=== PATIENT | male | born 1950 | race Caucasian/White ===

== ENCOUNTER → 2021-02-28 | Outpatient (CLI) | payer MEDICARE | LOC: KOH-I 15:02 | DX: S92.902A Unspecified fracture of left foot, initial encounter for closed fracture (principal); M79.89 Other specified soft tissue disorders; M19.072 Primary osteoarthritis, left ankle and foot | CPT/HCPCS: 73620 ==

== ENCOUNTER → 2021-03-28 | Outpatient (CLI) | payer MEDICARE | LOC: KOH-I 13:33 | DX: S92.322A Displaced fracture of second metatarsal bone, left foot, initial encounter for closed fracture (principal); S92.332A Displaced fracture of third metatarsal bone, left foot, initial encounter for closed fracture | CPT/HCPCS: 73630 ==

== ENCOUNTER → 2021-07-23 | Outpatient (CLI) | payer MEDICARE | LOC: EXRD 07-19 14:30 | DX: I65.23 Occlusion and stenosis of bilateral carotid arteries (principal) | CPT/HCPCS: 93880 ==

== ENCOUNTER → 2021-09-17 | Outpatient (CLI) | payer MEDICARE | LOC: HEART 5 09-11 09:30 | DX: R01.1 Cardiac murmur, unspecified (principal); I10 Essential (primary) hypertension | CPT/HCPCS: 93306 ==

== ENCOUNTER → 2021-10-09 | Day surgery (SDC) | payer MEDICARE ==
[~2021-10-09] MED LIST: ATORVASTATIN CA10 MG PO; HYDROCHLOROTHIA25 MG PO; LOSARTAN POTAS100 MG PO; MAGNESIUM100 MG PO; PROTONIX40 MG PO; TYLENOL325 MG PO; VITAMIN D3125 MC1 PO; ZINC PO; [UNRECOGNIZED DRUG - MIXTURE] PO
== END | disposition home or self-care (01) ==
LOC: OR 07:42
DX: D50.9 Iron deficiency anemia, unspecified (principal); K29.50 Unspecified chronic gastritis without bleeding; D12.3 Benign neoplasm of transverse colon; K57.30 Diverticulosis of large intestine without perforation or abscess without bleeding; K64.0 First degree hemorrhoids; K64.1 Second degree hemorrhoids; K64.4 Residual hemorrhoidal skin tags; K25.9 Gastric ulcer, unspecified as acute or chronic, without hemorrhage or perforation; K63.89 Other specified diseases of intestine; I10 Essential (primary) hypertension; E66.8 Other obesity; M19.90 Unspecified osteoarthritis, unspecified site; E78.00 Pure hypercholesterolemia, unspecified; Z88.0 Allergy status to penicillin; Z68.33 Body mass index [BMI] 33.0-33.9, adult
CPT/HCPCS: J2001; J2704; J3010; J7040